=== PATIENT | female | born 1935 | race Caucasian/White ===

== ENCOUNTER → 2016-10-13 | Outpatient (CLI) | payer OTHER ==
[~2016-10-13] MED LIST: LORTAB 7.5-3251 EACH PO; METFORMIN HCL500 MG PO; NORVASC 5 MG TAB5 MG PO; XARELTO10 MG PO
[2016-10-13 13:29] LABS: HEMOGLOBIN 13.5 gm/dl (12.3-15.3); RED BLOOD COUNT 4.36 M/UL (4.00-5.10); WHITE BLOOD COUNT 5.9 K/UL (4.5-11.0)
== END ==
LOC: OPSV2 12:48 → EDSTATUS 13:00 → OPSV2 13:00
PROVIDERS: Orthopaedic Surgery
DX: Z01.810 Encounter for preprocedural cardiovascular examination (principal); Z01.812 Encounter for preprocedural laboratory examination; Z01.818 Encounter for other preprocedural examination; M17.11 Unilateral primary osteoarthritis, right knee
CPT/HCPCS: 36415; 71020; 80048; 81001; 83036; 85025; 87081; 93005

== ENCOUNTER → 2016-10-15 | Outpatient (CLI) | payer OTHER | LOC: HEART 5 09:32 | DX: R94.31 Abnormal electrocardiogram [ECG] [EKG] (principal); I10 Essential (primary) hypertension; I51.89 Other ill-defined heart diseases; I08.2 Rheumatic disorders of both aortic and tricuspid valves; I37.1 Nonrheumatic pulmonary valve insufficiency; I34.8 Other nonrheumatic mitral valve disorders | CPT/HCPCS: 93306 ==

== ENCOUNTER 2016-10-20 05:45 | Inpatient (IN) | payer OTHER ==
[~2016-10-20] VITALS: Ht 160 cm; Wt 71.2 kg
[2016-10-20] MEDS ORDERED: METFORMIN HCL500 MG PO (06:56)
[2016-10-20] MEDS ORDERED: NORVASC 5 MG TAB5 MG PO (06:57)
[2016-10-21 06:45] LABS: HEMOGLOBIN 9.2 gm/dl (12.3-15.3); WHITE BLOOD COUNT 7.2 K/UL (4.5-11.0)
[2016-10-21 06:53] LABS: BUN/CREATININE RATIO 13 (0-10)
[2016-10-22 06:59] LABS: HEMOGLOBIN 9.3 gm/dl (12.3-15.3); RED BLOOD COUNT 3.01 M/UL (4.00-5.10); WHITE BLOOD COUNT 6.6 K/UL (4.5-11.0)
[2016-10-22 07:21] LABS: BUN/CREATININE RATIO 14 (0-10)
[2016-10-22] MEDS ORDERED: XARELTO10 MG PO (11:06)
[2016-10-22] MEDS ORDERED: LORTAB 7.5-3251 EACH PO (11:07)
== END 2016-10-22 11:40 | disposition home or self-care (01) | DRG 470 ==
LOC: M/S 05:45 → ZOBSOF 05:45 → M/S 16:14
PROVIDERS: ADMIT Orthopaedic Surgery
PROC: 0SRC0J9 Replacement of Right Knee Joint with Synthetic Substitute, Cemented, Open Approach (ICD-10-PCS; principal; 2016-10-20 07:45)
DX: M17.11 Unilateral primary osteoarthritis, right knee (principal); D62 Acute posthemorrhagic anemia; I95.81 Postprocedural hypotension; E11.9 Type 2 diabetes mellitus without complications; I10 Essential (primary) hypertension; K58.9 Irritable bowel syndrome, unspecified; Z96.643 Presence of artificial hip joint, bilateral; Z98.51 Tubal ligation status; Z96.652 Presence of left artificial knee joint; Z79.84 Long term (current) use of oral hypoglycemic drugs; Z82.49 Family history of ischemic heart disease and other diseases of the circulatory system; Z83.3 Family history of diabetes mellitus; Z80.9 Family history of malignant neoplasm, unspecified; Z79.899 Other long term (current) drug therapy
CPT/HCPCS: 36415; 73560; 80048; 82962; 85025; 86850; 86900; 86901; 97110; 97116; 97530; 97535; C1713; C1776; J0171; J0690; J0735; J1885; J2250; J2274; J2795; J3010; J3370; J7030; J7050; J7120

== ENCOUNTER → 2021-11-03 | Outpatient (CLI) | payer OTHER | LOC: MAMO 10:44 | DX: Z12.31 Encounter for screening mammogram for malignant neoplasm of breast (principal) | CPT/HCPCS: 77063; 77067 ==

== ENCOUNTER → 2021-12-23 | Outpatient (CLI) | payer OTHER ==
[2021-12-23 09:15] LABS: HEMOGLOBIN 13.9 gm/dl (12.3-15.3); RED BLOOD COUNT 4.49 M/UL (4.00-5.10); WHITE BLOOD COUNT 6.6 K/UL (4.5-11.0)
[2021-12-23 09:38] LABS: BUN/CREATININE RATIO 19 (0-10)
== END ==
LOC: LAB 08:27
PROVIDERS: Orthopaedic Surgery
DX: Z01.818 Encounter for other preprocedural examination (principal); Z20.822 Contact with and (suspected) exposure to COVID-19
CPT/HCPCS: 36415; 71046; 80053; 85025; 93005; U0003

== ENCOUNTER → 2021-12-29 | Outpatient (CLI) | payer OTHER | LOC: EMI 09:36 | DX: M80.88XA Other osteoporosis with current pathological fracture, vertebra(e), initial encounter for fracture (principal); M47.816 Spondylosis without myelopathy or radiculopathy, lumbar region; M51.36 Other intervertebral disc degeneration, lumbar region; M48.061 Spinal stenosis, lumbar region without neurogenic claudication | CPT/HCPCS: 72148 ==